=== PATIENT | female | born 1945 | race Caucasian/White ===

== ENCOUNTER 2016-12-02 09:12 | Inpatient (IN) ==
[2016-12-02] MEDS ORDERED: ASPIRIN PO STA (09:49)
[2016-12-02 09:56] LABS: MANUAL DIFF NEEDED? NO
--- NOTE | 2016-12-02 10:04 | PROVIDER DOCUMENTATION ---
HPI-Cardiac General - General Chief Complaint: B/P Problems Stated Complaint: AFIB Time Seen by Provider: 12/02/16 09:41 Source: patient Allergies/Adverse Reactions: Patient Allergies Allergy/AdvReac Type Severity Reaction Status Date / Time No Known Allergies Allergy Verified 12/02/16 09:52 Home Medications: Home Medication List Medication Instructions Recorded Confirmed Last Taken Type Alendronate Sodium [Fosamax] 70 mg PO DIRECTED 03/19/14 12/02/16 12/02/16 History Cholecalciferol (Vitamin D3) 4,000 unit PO DAILY 03/19/14 12/02/16 12/02/16 History [Vitamin D-3] Hydroxychloroquine [Plaquenil] 200 mg PO BID 03/19/14 12/02/16 12/02/16 History LISINOpril [Prinivil] 10 mg PO DAILY 03/19/14 12/02/16 03/04/16 08:00 History 1 tab Levothyroxine [Synthroid] 88 microgm PO DAILY 03/19/14 12/02/16 12/02/16 History Metoprolol [Lopressor] 50 mg PO HS 03/19/14 12/02/16 12/01/16 History Omeprazole 20 mg PO DAILY 03/19/14 12/02/16 12/02/16 History Simvastatin 20 mg PO DAILY 03/19/14 12/02/16 12/02/16 History Montelukast Sodium [Singulair] 10 mg PO DAILY 03/05/16 12/02/16 12/02/16 History Aspirin [Adult Low Dose Aspirin EC] 81 mg PO DAILY #30 tablet. 03/08/1612/02/16 Rx Diltiazem [Cardizem] 120 mg PO DAILY 12/02/16 12/02/16 12/02/16 History - History of Present Illness-Cardiac Nature of Presenting Problem: Pt is a 71 y/o F sent to the ER from an urgent care c EKG concerning for STEMI. Pt states that for the past 3 days she has had a fluttering/palpitating sensation in her chest. Pt had similar symptoms in Feb 2016 and was evaluated for SVT by cardiology. She was dx c paroxysmal a-fib that converted c cardizem. She was started on oral cardizem by her pcp. On arrival, pt denies any chest pain, fatigue, or shortness of breath. Her heart rate is 133 c a stable blood pressure. Review of Systems - Adult - REVIEW OF SYSTEMS - ADULT Constitutional: reports: see HPI, fatique. denies: chills Eyes: reports: no symptoms reported. denies: blurred vision, double vision Ears, Nose, Mouth & Throat: reports: no symptoms reported. denies: ear pain, nose pain Cardiovascular: reports: see HPI, irregular heart rate, palpitations. denies: chest pain Respiratory: reports: no symptoms reported. denies: cough, shortness of breath Gastrointestinal: reports: no symptoms reported. denies: abdominal pain, nausea Genitourinary: reports: no symptoms reported. denies: dysuria, hematuria Musculoskeletal: reports: no symptoms reported. denies: joint pain, joint swelling Integumentary: reports: no symptoms reported. denies: hives, itching, rash Neurological: reports: no symptoms reported. denies: numbness, paresthesia Psychiatric: reports: no symptoms reported. denies: anxiety, emotional problems Endocrine: reports: no symptoms reported. denies: cold intolerance, heat intolerance Hematologic/Lymphatic: reports: no symptoms reported. denies: blood clots, low blood count Allergic/Immunologic: reports: no symptoms reported. denies: allergic reactions , food allergy All Other Systems: Reviewed and Negative Past History - Adult - PAST MEDICAL HISTORY-ADULT Review of Records: reports: Old Records Reviewed, Nursing Assessment Review, Medications Reviewed, Social history reviewed & non-contributory. Major Childhood Illnesses: reports: denies history Cardiovascular: reports: A-Fib, arrhythmia, HTN, hyperlipidemia Respiratory: reports: denies history Gastrointestinal: reports: denies history Obstetrical/Gynecological: reports: denies history Genitourinary: reports: denies history Musculoskeletal: reports: chronic pain, intervertebral disc disease Neurological: reports: denies history Endocrine/Immune: reports: thyroid disorder Other Conditions: reports: denies history - PRIOR SURGERIES/PROCEDURES Surgical/Procedure History: reports: appendectomy, cholecystectomy, hysterectomy , , tonsillectomy, back/neck - PRIOR HOSPITALIZATIONS Prior Hospitalizations: reports: for other non-related - IMMUNIZATION STATUS Childhood Immunizations: See Nurse Assessment Flu Vaccine: See Nurse Assessment - FAMILY HISTORY Family History: reviewed, not pertinent - SOCIAL HISTORY Smoking: denies Substance Use: none/never Alcohol Use Frequency: never Living Situation: family Physical Exam-General - PHYSICAL EXAM-ADULT Initial Vital Signs Reviewed: Yes - CONSTITUTIONAL General Appearance: alert, no apparent distress - EYES Eyes: PERRL/EOMI, pink conjunctivae - HEAD, EARS, NOSE, MOUTH & THROAT HENMT: normocephalic/atraumatic, moist mucous membranes, normal ENT inspection - NECK Neck: normal inspection - RESPIRATORY Respiratory: chest non-tender, lungs clear, normal breath sounds - CARDIOVASCULAR Cardiovascular: tachycardia - GASTROINTESTINAL (ABDOMEN) Abdominal Exam: normal bowel sounds, non tender, soft - LYMPHATIC Lymphatic: no adenopathy - MUSCULOSKELETAL Back Exam: normal inspection, no CVA tenderness, no vertebral tenderness Extremity: normal range of motion, non-tender, normal inspection - SKIN Integumentary: normal color, normal turgor, warm/dry - NEUROLOGIC Neurologic: grossly normal, no motor/sensory deficits - PSYCHIATRIC Psych/Mental Status: normal mood/affect, normal thought content, normal thought process, oriented x 3 Progress - PLAN OF CARE/RESULTS Progress/Plan/Lab Results: Vital Signs - 8 hr 12/02/16 09:16 Temperature 98.3 F Pulse Rate 133 H Respiratory Rate 16 Blood Pressure 153/100 O2 Sat by Pulse Oximetry 98 Laboratory Results - last 24 hr 12/02/16 12/02/16 12/02/16 09:35 09:35 09:35 WBC RBC Hgb Hct MCV MCH MCHC RDW Std Deviation Plt Count MPV Immature Gran % (Auto) Neut % (Auto) Lymph % (Auto) [place] % (Auto) Eos % (Auto) Baso % (Auto) Immature Gran # (Auto) Neut # (Auto) Lymph # (Auto) [place] # (Auto) Eos # (Auto) Baso # (Auto) PT INR PTT (Actin FS) D-Dimer 0.38 Sodium 139 Potassium 4.0 Chloride 100 Carbon Dioxide 25 Anion Gap 14 BUN 16 Creatinine 0.8 Estimated GFR/1.73 m2 > 60 BUN/Creatinine Ratio 20 Glucose 102 Calculated Osmolality 279 Calcium 8.9 Magnesium Total Bilirubin 0.45 AST 25 ALT 15 Alkaline Phosphatase 65 Creatine Kinase 79 Troponin T < 0.010 [id number]-Xldxbhpvaxo Pept Total Protein 7.4 Albumin 4.3 Globulin 3.1 Albumin/Globulin Ratio 1.4 12/02/16 12/02/16 12/02/16 09:35 09:35 09:35 WBC 9.86 RBC 4.71 Hgb 13.9 Hct 42.4 MCV 90.0 MCH 29.5 MCHC 32.8 L RDW Std Deviation 12.6 Plt Count 297 MPV 10.3 Immature Gran % (Auto) 0.3 Neut % (Auto) 65.7 Lymph % (Auto) 19.1 L [place] % (Auto) 11.7 H Eos % (Auto) 2.4 Baso % (Auto) 0.8 Immature Gran # (Auto) 0.03 Neut # (Auto) 6.48 Lymph # (Auto) 1.88 [place] # (Auto) 1.15 H Eos # (Auto) 0.24 Baso # (Auto) 0.08 PT 10.6 INR 1.01 PTT (Actin FS) 24.9 D-Dimer Sodium Potassium Chloride Carbon Dioxide Anion Gap BUN Creatinine Estimated GFR/1.73 m2 BUN/Creatinine Ratio Glucose Calculated Osmolality Calcium Magnesium Total Bilirubin AST ALT Alkaline Phosphatase Creatine Kinase Troponin T Vud-[id number]-Axmwelxrtrp Pept 2300 H Total Protein Albumin Globulin Albumin/Globulin Ratio 12/02/16 09:35 WBC RBC Hgb Hct MCV MCH MCHC RDW Std Deviation Plt Count MPV Immature Gran % (Auto) Neut % (Auto) Lymph % (Auto) [place] % (Auto) Eos % (Auto) Baso % (Auto) Immature Gran # (Auto) Neut # (Auto) Lymph # (Auto) [place] # (Auto) Eos # (Auto) Baso # (Auto) PT INR PTT (Actin FS) D-Dimer Sodium Potassium Chloride Carbon Dioxide Anion Gap BUN Creatinine Estimated GFR/1.73 m2 BUN/Creatinine Ratio Glucose Calculated Osmolality Calcium Magnesium 1.7 Total Bilirubin AST ALT Alkaline Phosphatase Creatine Kinase Troponin T [id number]-Lzsymaxpzvz Pept Total Protein Albumin Globulin Albumin/Globulin Ratio Orders Category Date Time Status Cardiac Monitoring DIRECTED Care 12/02/16 09:49 Active Oxygen Therapy- ED Nursing DIRECTED Care 12/02/16 09:49 Active Saline Loc NOW Care 12/02/16 09:49 Active CHEST-2 VIEWS [RAD] Stat Exams 12/02/16 09:49 Completed CBC WITH ELECTRONIC DIFF [HEME] Stat Lab 12/02/16 09:35 Completed CK PROFILE [SP CHEM] Stat Lab 12/02/16 09:35 Completed COMPREHENSIVE METABOLIC PANEL [CHEM] Stat Lab 12/02/16 09:35 Completed D-DIMER [CHEM] Stat Lab 12/02/16 09:35 Completed MAGNESIUM [CHEM] Stat Lab 12/02/16 09:35 Completed PRO B-NATRIURETIC PEPTIDE Stat Lab 12/02/16 09:35 Completed PROTIME WITH INR [COAG] Stat Lab 12/02/16 09:35 Completed PTT [COAG] Stat Lab 12/02/16 09:35 Completed TROPONIN T Stat Lab 12/02/16 09:35 Completed Aspirin Med 12/02/16 09:49 Discontinued 325 mg PO STAT STA Diltiazem [Cardizem] Med 12/02/16 10:38 Discontinued 10 mg IV NOW ONE EKG [EKG] Stat Ther 12/02/16 09:49 Draft Result Diagrams: 12/02/16 09:35 12/02/16 09:35 - REASSESSMENT Reassessment #1 Time Reassessed: 09:58 (Discussed c Dr. Suazo (ER MD) who reviewed plan of care and agreed. Dr. Suazo went to bedside. ) - CONSULTS/PCP/HOSPITALIST Notification #1 *Consult/PCP/Hospitalist*: Dr. Matos (PCP) Time Discussed: 11:15 Reason/Comments: admit to cic on cardizem drip. will see on the floor. Departure - Departure Date of Disposition Decision: 12/02/16 Time of Disposition Decision: 11:15 DIAGNOSIS: Atrial flutter Qualifiers: Atrial flutter type: unspecified Qualified Code(s): I48.92 - Unspecified atrial flutter Disposition: ADMITTED INPATIENT 09 Certified Medical Emergency: Emergent Condition: Stable Referrals and Follow-Ups: Jonelle Matos MD [Primary Care Provider] - - Critical Care Note This patient required my direct & personal management of CC.: No Attestation - Physician/ HARINDER Attestation Patient care was provided by Advanced Practice Provider:: Yes Advanced Practice Provider:: Sudarshan Segal Advanced Practice Provider documentation review:: The Mid-level provider documentation, treatment plan and medical decision making was reviewed by the physician who agrees with all treatment and medical decision making by the MLP.
[2016-12-02 10:11] LABS: BASO% 0.8 % (0.0-0.8); EOS# 0.24 X1000 (0.0-0.7); EOS% 2.4 % (0.0-10.0); HEMATOCRIT 42.4 % (37.0-47.0); HEMOGLOBIN 13.9 g/dL (12.0-16.0); IMM GRAN# 0.03 X1000 (0.0-0.04); IMM GRAN% 0.3 % (0.0-0.5); LYMPH# 1.88 X1000 (1.2-3.4); LYMPH% 19.1 % (20.5-51.1); MCH 29.5 PG (27-31); MCHC 32.8 g/dL (33-37); MONO# 1.15 X1000 (0.11-0.59); MONO% 11.7 % (1.7-9.3); MPV 10.3 FL (7.4-10.4); NEUT% 65.7 % (42.2-75.2); PLT 297 X1000 (130-400); RBC 4.71 XMIL (4.2-5.4)
--- NOTE | 2016-12-02 10:19 | Diag Imaging Result Doc PS360 ---
EXAM: CHEST-2 VIEWS HISTORY: CP TECHNIQUE: PA and lateral chest COMMENT: There is no evidence of acute cardiac or pulmonary disease. Compared to 03/04/2016 there is been no significant change in the appearance of the chest. IMPRESSION: No acute disease. Electronically signed by Elijah Rogers 12/02/2016 10:17 AM
[2016-12-02 10:28] LABS: INR 1.01; PROTIME 10.6 Seconds (9.2-11.7); PTT 24.9 Seconds (22.0-36.0)
--- NOTE | 2016-12-02 10:28 | EKG Report ---
Test Performed on : 12/02/2016 09:19:46 AM Test Reason : Chest Pain Blood Pressure : / mmHG Vent. Rate : 133 BPM Atrial Rate : 266 BPM P-R Int : 000 ms QRS Dur : 080 ms QT Int : 398 ms P-R-T Axes : 000 060 095 degrees QTc Int : 592 ms Atrial flutter. with 2:[address] elevation, consider inferior injury or acute infarct ACUTE MD / STEMI Consider right ventricular involvement in acute inferior infarct Abnormal ECG When compared with ECG of 07-MAR-2016 07:09, Significant changes have occurred Unconfirmed Result
[2016-12-02 10:32] LABS: AGAP 14; ALBUMIN 4.3 g/dL (3.5-5.0); ALKALINE PHOSPHATASE 65 U/L (32-104); BUN 16 mg/dL (8-22); CALCIUM 8.9 mg/dL (8.8-10.2); CHLORIDE 100 mmol/L (98-107); CK PROFILE 79 U/L (24-173); COSMO 279; GOT 25 U/L (10-30); GPT 15 U/L (10-36); SODIUM 139 mmol/L (136-145); TCO2 25 mmol/L (25-35); TOTAL BILIRUBIN 0.45 mg/dL (0.20-1.00); TOTAL PROTEIN 7.4 g/dL (6.3-8.3)
[2016-12-02] MEDS ORDERED: CARDIZEM IV ONE (10:38)
[2016-12-02] MEDS ORDERED: NS 1,000 ML IV ONE (11:18)
[2016-12-02] MEDS: CARDIZEM 100 MG/NS 100 MG/100 ML IVPB IV SCH ×3 (11:50→22:00)
[2016-12-02] MEDS: RYTHMOL PO SCH ×2 (15:49→17:41)
[2016-12-02] MEDS: LOVENOX SUBQ SCH (15:49)
--- NOTE | 2016-12-02 18:24 | CONSULTATION ---
DATE OF CONSULTATION: 12/02/2016 IMPRESSION: 1. Atrial flutter with rapid ventricular rate now better controlled with intravenous Cardizem. Symptoms of palpitations started 2 days ago. 2. Previous atrial fibrillation February 2016. Patient spontaneously converted back to sinus rhythm after initiation of Cardizem for rate control. 3. Normal coronary angiography February 2016. 4. Hypertension. 5. Hypercholesterolemia. 6. Hypothyroidism. RECOMMENDATIONS: 1. Continue intravenous Cardizem for rate control. 2. Initiate anticoagulation with Lovenox. 3. Patient has significant CHADS2-VASc 2 score and would benefit from long-term anticoagulation for thromboembolic risk protection. 4. Given recurrence of atrial arrhythmia with previous atrial fibrillation and now atrial flutter, reasonable to suppress with antiarrhythmic therapy. Is advantageous that she had normal coronary angiography February 2016. Will initiate a type 1C antiarrhythmic with propafenone. Alternatively one could use combination of flecainide plus beta-atif. HISTORY: This 71-year-old white female with past history of previous atrial fibrillation, hypertension, hypercholesterolemia and hypothyroidism was admitted through emergency room with palpitations and ECG showing atrial flutter with rapid ventricular rate. She has been started on intravenous Cardizem. Cardiology is consulted. She started having pounding in her chest 2 days ago. She describes an associated sensation like gastroesophageal reflux with her tachy palpitations. Symptoms did not get better and she finally came in this morning. She was hospitalized with atrial fibrillation, rapid ventricular rate in February 2016. Evaluation at that time included coronary angiography which was normal. She recalls being started on intravenous Cardizem and she converted back to sinus rhythm without having to have electrical cardioversion. She has been on antiplatelet therapy. There is no history of syncope. PAST MEDICAL HISTORY: 1. Previous atrial fibrillation February 2016. 2. Previous normal coronary angiography February 2016. 3. Hypertension. 4. Hypercholesterolemia. 5. Hypothyroidism. 6. Gastroesophageal reflux disease. PAST SURGICAL HISTORY: Includes complete hysterectomy, cholecystectomy, and appendectomy. ALLERGIES: She has no known drug allergies. MEDICATIONS: Prior to admission as listed. SOCIAL HISTORY: She has been a nonsmoker since 1982. She drinks an infrequent glass of wine. 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 FAMILY HISTORY: Negative for premature coronary disease. REVIEW OF SYSTEMS: Pulmonary: Negative. Gastrointestinal: Negative beyond history present illness. Constitutional: Negative beyond history present illness. Remainder review of systems negative beyond history present illness with 14 total systems reviewed. PHYSICAL EXAMINATION: General: This is a pleasant, older white female in no distress. Vital Signs: As recorded are stable. HEENT Exam: Extraocular intact. Mucous membranes are moist. Neck: Supple without jugular venous distention. No carotid bruits. Chest: Clear to auscultation. Cardiac Exam: Reveals a regular tachycardia without appreciable murmur or gallop. Abdomen: Soft, nontender. Bowel sounds are normal. Extremities: Without edema. Neurologic Exam: Reveals her to be alert, fully oriented. Speech is fluent. Moves all 4 extremities equally well. Skin: Warm and dry. Psychiatric: Reveals her mood to be appropriate. DATA: ECG demonstrates atrial flutter with 2:1 AV conduction. cc: MD Garry Mckay MD
--- NOTE | 2016-12-02 20:02 | HISTORY AND PHYSICAL ---
CHIEF COMPLAINT: Palpitations, atypical chest pain. HISTORY OF PRESENT ILLNESS: She is a 71-year-old white female with known history of intermittent atrial fibrillation under medical treatment recently evaluated 6 months ago with a normal coronary angiography, no structural heart disease. Loop monitor did not show any evidence of intermittent atrial fibrillation. She was seen in our clinic with atrial flutter with heart rate 130-140s. Admitted to the hospital after evaluating in the emergency room. She was started on Cardizem drip and further evaluation. Cardiology consult was obtained. PAST MEDICAL HISTORY: Allergic rhinitis. Bilateral cataracts. Acid reflux disease. Deafness. Hyperlipidemia. Hypertension. Hypothyroidism. Rheumatoid arthritis. 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 Osteoporosis. Atrial fibrillation, paroxysmal. PAST SURGICAL HISTORY: Tonsillectomy, cholecystectomy, total hysterectomy, C- section. Colonoscopy 3 years ago, normal. MEDICATIONS: Vitamin D3 4000 units daily. Simvastatin 20 daily. Prilosec 20 daily. Plaquenil 200 p.o. b.i.d. Synthroid 88 mcg daily. Lisinopril 10 daily. Metoprolol 50 daily. Fosamax 70 mg once a week. Singulair 10 daily. Aspirin 80 mg daily. Cardizem 120 daily. ALLERGIES: Not known. SOCIAL HISTORY: since 2001, lives in [place], disabled, no smoking. No alcohol. FAMILY HISTORY: Father of COPD, end-stage kidney failure at 71. Mom of COPD and lung cancer. Brother of cardiac arrest with end-stage kidney disease. HEALTH MAINTENANCE: Pneumococcal vaccine 2013. DEXA scan 2012. Colonoscopy [address] Rivera. Last cardiac catheterization February [address] Hairston. REVIEW OF SYSTEMS: HEENT: No headache. No vision problem. No earache. No sore throat. Neck: No goiter. No lymphadenopathy. No bruits. Cardiopulmonary: Palpitations. Atypical chest pain. No shortness of breath, PND, orthopnea. GI: No nausea, vomiting, abdominal pain. : No history of hesitancy, frequency. No swelling of legs. No joint pain. Neurologic: No focal symptoms or weakness. PHYSICAL EXAMINATION: VITAL SIGNS: Afebrile, tachycardic, irregular. Hemodynamics were stable. 5 feet 1, 158 pounds. HEENT: Atraumatic, normocephalic. Pupils equal, reactive to light. no pallor no cyanosis. No jaundice. NECK: Supple. No lymphadenopathy. No goiter. CHEST: Bilateral air entry. No rales, no wheezing. HEART: Sounds are irregular. No murmur. ABDOMEN: Belly is soft, nontender. Good bowel sounds. No masses palpable. No peripheral edema, cyanosis, clubbing. NEUROLOGIC: No obvious neurological deficits. INVESTIGATIONS: CBC: White cell count 9.8, hematocrit 42, platelets 297,000. PT 10, INR 1. PTT 24.9. D-dimer is normal. SMA7 is normal. LFTs: Magnesium, cardiac enzymes were normal. ProBNP slightly elevated. Chest x-ray. No acute disease. EKG: Atrial flutter with nonspecific changes. ASSESSMENT AND PLAN: 1. A 71-year-old white female admitted to the hospital with atrial flutter, persistent, and previous workup, loop monitor, cardiac catheterization, and echocardiography were pretty much normal. No significant structural heart disease noted. Plan is IV Cardizem drip, Lovenox, antiarrhythmic drug. Started on Rythmol. 2. Reconcile home medications. 3. Hyperlipidemia, on Zocor. 4. Acid reflux disease, on Prilosec. 5. Allergies, on Singulair. 6. Hypothyroidism, on Synthroid. 7. Rheumatoid arthritis, on hydroxychloroquine under the care of Dr. Mcgovern. 8. Cardiology consult with Dr. Isak Tobias. If not able to cardiovert chemically, consider direct cardioversion and will follow up on the clinical course. cc: Garry Matos MD [facility]
[2016-12-02] MEDS: PLAQUENIL PO SCH ×2 (21:33)
[2016-12-02] MEDS: ZOCOR PO SCH (22:06)
[2016-12-02] MEDS: SINGULAIR PO SCH (22:06)
[2016-12-03] MEDS: LOVENOX SUBQ SCH ×2 (03:28→15:10)
[2016-12-03 05:04] LABS: BASO% 0.7 % (0.0-0.8); EOS# 0.31 X1000 (0.0-0.7); EOS% 3.3 % (0.0-10.0); HEMATOCRIT 38.1 % (37.0-47.0); HEMOGLOBIN 12.5 g/dL (12.0-16.0); IMM GRAN# 0.03 X1000 (0.0-0.04); IMM GRAN% 0.3 % (0.0-0.5); LYMPH# 2.18 X1000 (1.2-3.4); MANUAL DIFF NEEDED? NO; MCHC 32.8 g/dL (33-37); MCV 91.4 FL (81-99); MONO# 1.21 X1000 (0.11-0.59); MONO% 12.8 % (1.7-9.3); MPV 9.9 FL (7.4-10.4); NEUT% 59.9 % (42.2-75.2); PLT 234 X1000 (130-400); RBC 4.17 XMIL (4.2-5.4)
[2016-12-03 05:25] LABS: MAGNESIUM 1.6 mg/dL (1.5-2.7); POTASSIUM 3.7 mmol/L (3.5-5.1)
[2016-12-03] MEDS: CARDIZEM 100 MG/NS 100 MG/100 ML IVPB IV SCH ×3 (05:51→17:20)
[2016-12-03] MEDS: PRILOSEC PO SCH ×2 (05:51→06:28)
[2016-12-03] MEDS: SYNTHROID PO SCH ×2 (05:52→06:29)
--- NOTE | 2016-12-03 08:18 | PROGRESS NOTE ---
DATE: 12/03/2016 SUBJECTIVE: A 71-year-old white female patient admitted with atrial flutter with rapid ventricular response. The patient had history of atrial fibrillation. The patient was complaining of palpitation. EKG did reveal atrial flutter. Admission history, physical, and cardiology consult reviewed. The patient converted to sinus rhythm last night, but again she went into flutter/fibrillation. Patient does have palpitation. She denied any chest pain. No nausea or vomiting. She denied any unusual cough, expectoration, dull headache. No heat or cold intolerance. No polyuria or polydipsia. PAST MEDICAL HISTORY: Significant for atrial fibrillation. She had normal coronaries. Allergic rhinitis, gastritis and reflux disease, hyperlipidemia, hearing impairment, hypertension, hypothyroidism, rheumatoid arthritis, osteoporosis. OBJECTIVE: Vital Signs: Her vital signs noted. Neck: Supple. No JVD. Lungs: Bilateral good air entry present. CVS: S1 and S2. Tachycardia. Irregularly irregular. Abdomen: Soft, nontender. Bowel sounds present. Extremities: No cyanosis, clubbing. No acute DVT. COOK RESTAURANT: Alert, awake, able to move all 4 limbs. LAB DATA: Revealed hemoglobin 12.5, hematocrit 38.1, platelet count 234, WBC count 9.47. Electrolytes fairly benign. Magnesium was 1.6. Cardiac isoenzymes negative. I am going to check TSH and free T4. Continue rest of the treatment. Close observation. OVERALL IMPRESSION: 1. Atrial flutter with rapid ventricular rate. 2. History of paroxysmal atrial fibrillation. 3. Hypertension. 4. Hypothyroidism. 5. Hyperlipidemia. 6. History of rheumatoid arthritis. PLAN: Executive Team Leader following patient with us. Lab and medication noted. We will continue current treatment and close observation. cc: MD Garry Mcmahon MD
[2016-12-03] MEDS: RYTHMOL PO SCH ×3 (10:29→17:20)
[2016-12-03] MEDS: ASPIRIN EC PO SCH (10:29)
[2016-12-03] MEDS: PLAQUENIL PO SCH ×2 (10:29→20:44)
[2016-12-03] MEDS: SENOKOT PO SCH (10:29)
[2016-12-03] MEDS: VITAMIN D PO SCH (10:29)
[2016-12-03 10:39] LABS: FREE T4 1.43 ng/dL (0.93-1.70)
[2016-12-03] MEDS ORDERED: MAGNESIUM SULFATE 4 GM/S.W.I. 4 GM/100 ML IVPB IV ONE (11:06)
[2016-12-03] MEDS: LANOXIN IV SCH ×3 (11:47→23:35)
--- NOTE | 2016-12-03 12:40 | PROGRESS NOTE ---
DATE: 12/03/2016 CHIEF COMPLAINT: Irregular heartbeat, palpitations. SUBJECTIVE: Ms. Paige is still feeling palpitations. She is presently on IV Cardizem and oral propafenone has been initiated. Heart rate is still fluctuating widely between 90 beats per minute to 120. She is not in any distress of pain. OBJECTIVE: Vital signs: Blood pressure right now is 119/63. Temperature 98.1. Pulse 120. Respirations 18. General: She is awake, alert and oriented. Follows commands. HEENT: Unremarkable. Chest: Clear to auscultation and percussion. Cardiac: Heart sounds are tachycardic, irregularly irregular. No gallop or murmur is noted. Abdomen: Nontender, soft. No masses. No hepatomegaly. Extremities: Show good pulses. No edema. Neurologic: Moves four extremities. Follows commands. LABORATORY DATA: Today sodium 141, potassium 3.7, BUN 17, creatinine 1.0. Troponin has been checked several times, twice at least, and they are negative. A proBNP level was done on the day of admission. It was 2300 pg per mL. Hemoglobin 12.5, hematocrit 38.1, white count 9470. IMPRESSION: 1. Patient with paroxysmal atrial flutter. 2. Patient with a history of hypertension, hyperlipidemia, gastric reflux. 3. Negative coronary arteriogram in the past which was done by Dr. Hairston 03/07/2016. RECOMMENDATIONS: At this point in time, we will continue IV Cardizem, propafenone by mouth, and I will give her 3 doses of digoxin plus IV magnesium. Hopefully we will get her to convert to sinus rhythm. She might be a good candidate for ablation of atrial flutter. Further advice will be forthcoming. Thank you for the opportunity to participate in her evaluation. cc: MD Garry Valente MD
[2016-12-03] MEDS: ZOCOR PO SCH (20:44)
[2016-12-03] MEDS: SINGULAIR PO SCH (20:44)
[2016-12-04] MEDS: LOVENOX SUBQ SCH ×2 (02:15→13:18)
[2016-12-04] MEDS: CARDIZEM 100 MG/NS 100 MG/100 ML IVPB IV SCH ×3 (02:15→20:54)
[2016-12-04 05:45] LABS: MANUAL DIFF NEEDED? NO
[2016-12-04] MEDS: SYNTHROID PO SCH ×2 (05:58→06:27)
[2016-12-04] MEDS: PRILOSEC PO SCH ×2 (05:58→06:27)
[2016-12-04 06:13] LABS: AGAP 10; ALBUMIN 3.6 g/dL (3.5-5.0); ALKALINE PHOSPHATASE 59 U/L (32-104); BUN 13 mg/dL (8-22); CALCIUM 8.1 mg/dL (8.8-10.2); CHLORIDE 106 mmol/L (98-107); COSMO 281; GOT 18 U/L (10-30); GPT 11 U/L (10-36); MAGNESIUM 2.2 mg/dL (1.5-2.7); POTASSIUM 4.2 mmol/L (3.5-5.1); SODIUM 141 mmol/L (136-145); TCO2 25 mmol/L (25-35); TOTAL BILIRUBIN 0.27 mg/dL (0.20-1.00)
[2016-12-04 06:24] LABS: BASO% 0.6 % (0.0-0.8); EOS# 0.28 X1000 (0.0-0.7); EOS% 3.2 % (0.0-10.0); HEMATOCRIT 36.5 % (37.0-47.0); HEMOGLOBIN 11.8 g/dL (12.0-16.0); IMM GRAN# 0.02 X1000 (0.0-0.04); IMM GRAN% 0.2 % (0.0-0.5); LYMPH# 1.87 X1000 (1.2-3.4); LYMPH% 21.3 % (20.5-51.1); MCH 29.9 PG (27-31); MCHC 32.3 g/dL (33-37); MCV 92.6 FL (81-99); MONO% 11.4 % (1.7-9.3); MPV 9.9 FL (7.4-10.4); NEUT% 63.3 % (42.2-75.2); PLT 232 X1000 (130-400); RBC 3.94 XMIL (4.2-5.4)
--- NOTE | 2016-12-04 07:56 | ECHO REPORT ---
ORDER DATE: 12/02/2016 INTERPRETING PHYSICIAN: Dr. Crain REQUESTING PHYSICIAN: CLINICAL INDICATIONS: Echocardiogram requested for evaluation of atrial flutter. M-MODE MEASUREMENTS: Right ventricle: 2.7 cm. Left ventricle end diastole: 4.3 cm. Left ventricle end systole: 3.1 cm. Posterior wall: 1.2 cm. Interventricular septum: 1.2 cm. Left atrium: 3.4 cm. Aortic root: 3.2 cm. SUMMARY OF 2-DIMENSIONAL IMAGING: The left ventricular function is normal. Ejection fraction 62%. No wall motion abnormality is noted. The left ventricle is not dilated. There is a mild degree of concentric LVH. The left atrium is moderately to significantly enlarged. The right ventricle appears to be at the upper limits of normal. The right atrium is probably borderline enlarged. The mitral annulus shows thickening. Color flow mapping of the mitral valve indicates a mild degree of regurgitation. Pulse wave Doppler of mitral inflow shows a fusion pattern with an early filling wave and the "flutter" waves merging. Diastolic function cannot be evaluated in this case because of this abnormal pattern. The tricuspid valve looks normal with a mild degree of regurgitation. Pulmonary pressure estimated at 27 mmHg. The inferior vena cava is not dilated. The pulmonic valve looks normal with a mild degree of regurgitation. The aortic valve shows normal opening of the cusps. There is no aortic stenosis. There is a little thickening of the posterior cusp. There is some calcification of the root. Color flow mapping indicates a mild degree of aortic regurgitation. There is no pericardial effusion, masses or thrombus. IMPRESSION: In summary, this study shows: 1. Normal left ventricular systolic function. 2. Mild degree of concentric LVH. 3. Moderately enlarged left atrium. 4. Sclerosis of aortic valve and mitral annulus. 5. Mild degree of mitral and aortic regurgitation. 6. Pulmonary pressure estimated at 27 mmHg. 7. Diastolic function cannot be evaluated. Clinical correlation recommended. cc: MD Garry Valente MD
[2016-12-04] MEDS: VITAMIN D PO SCH (08:26)
[2016-12-04] MEDS: PLAQUENIL PO SCH ×2 (08:26→20:55)
[2016-12-04] MEDS: SENOKOT PO SCH (08:26)
[2016-12-04] MEDS: ASPIRIN EC PO SCH (08:26)
[2016-12-04] MEDS: RYTHMOL PO SCH ×3 (08:26→17:49)
--- NOTE | 2016-12-04 10:02 | PROGRESS NOTE ---
DATE: 12/04/2016 SUBJECTIVE: Ms. Paige is doing better. She denied any chest pain. Palpitation is improving. No shortness of breath. No fever or chills. Denied any nausea or vomiting. Cardiology recommendation noted. OBJECTIVE: Vital Signs: Her vital signs reviewed. Neck: Supple. No JVD, thyromegaly, or lymphadenopathy. Chest: Bilateral good air entry present. CVS: S1 and S2 heard. At times, irregular. Abdomen: Soft, globular. Bowel sounds present. 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 Able to move all 4 limbs. PROBLEM LIST: 1. Atrial flutter. 2. Hypothyroidism. I rechecked her TSH and free T4, and those were normal. Her electrolytes were fairly benign this morning. 3. History of rheumatoid arthritis. 4. Rhinitis. PLAN: Overall, patient is doing fair. We will continue current treatment and close observation. cc: MD Garry Mcmahon MD
[2016-12-04] MEDS: SINGULAIR PO SCH (20:55)
[2016-12-04] MEDS: ZOCOR PO SCH (20:55)
[2016-12-05] MEDS: LOVENOX SUBQ SCH (01:02)
[2016-12-05] MEDS: CARDIZEM 100 MG/NS 100 MG/100 ML IVPB IV SCH (06:19)
[2016-12-05] MEDS: PRILOSEC PO SCH (06:19)
[2016-12-05] MEDS: SYNTHROID PO SCH (06:19)
--- NOTE | 2016-12-05 06:56 | EKG Report ---
Test Performed on : 12/05/2016 06:08:08 AM Test Reason : atrial flutter Blood Pressure : / mmHG Vent. Rate : 099 BPM Atrial Rate : 099 BPM P-R Int : 198 ms QRS Dur : 114 ms QT Int : 380 ms P-R-T Axes : 083 056 071 degrees QTc Int : 487 ms Normal sinus rhythm. Nonspecific ST and T wave abnormality Abnormal ECG When compared with ECG of 04-DEC-2016 06:13, (Unconfirmed) Sinus rhythm. has replaced Atrial flutter. Nonspecific T wave abnormality has replaced inverted T waves in Lateral leads Confirmed by Enrico Billingsley MD ([id number]) on 12/06/2016 12:26:53 PM
[2016-12-05] MEDS: RYTHMOL PO SCH ×3 (08:58→16:28)
[2016-12-05] MEDS: SENOKOT PO SCH (08:58)
[2016-12-05] MEDS: VITAMIN D PO SCH (08:58)
[2016-12-05] MEDS: PLAQUENIL PO SCH ×2 (08:58→21:41)
[2016-12-05] MEDS: ASPIRIN EC PO SCH (08:58)
--- NOTE | 2016-12-05 09:18 | PROGRESS NOTE ---
DATE: 12/04/2016 CHIEF COMPLAINT: Irregular heart beat, palpitations. SUBJECTIVE: Ms. Paige has no complaints at this time. She is breathing fine. She is not having palpitations or chest pain. OBJECTIVE: Her blood pressure is 119/62, temperature 98.1, pulse 96, respirations 18. She is awake, alert and oriented, no distress. HEENT is unremarkable. Chest is clear to auscultation and percussion. Heart sounds are slightly irregular. Abdomen is nontender, soft. No masses, no hepatomegaly. Extremities showed good pulses, no edema. Neurologic: Follows commands, moves all 4 extremities. DIAGNOSTIC DATA: White count is 8760, hemoglobin 11.8, hematocrit 36.5. Sodium is 141, potassium 4.2, BUN is 13, creatinine 0.7. Telemetry shows atrial flutter with controlled response. IMPRESSION: 1. The patient presented with persistent atrial flutter. She is better controlled on propafenone, Cardizem and digoxin. 2. History of hypertension. 3. History of hyperlipidemia. 4. Negative coronary artery disease per heart catheterization performed last year. RECOMMENDATIONS: We will give her a maintenance dose of digoxin until decision is made whether or not she needs to be cardioverted. Further advice will be forthcoming. cc: MD Garry Valente MD
--- NOTE | 2016-12-05 10:39 | EKG Report ---
Test Performed on : 12/02/2016 11:42:13 PM Test Reason : CIC. Not ordered in [place] Blood Pressure : / mmHG Vent. Rate : 104 BPM Atrial Rate : 104 BPM P-R Int : 188 ms QRS Dur : 092 ms QT Int : 332 ms P-R-T Axes : 087 039 130 degrees QTc Int : [address] \T\ T wave abnormality, consider inferior ischemia ST \T\ T wave abnormality, consider anterolateral ischemia Abnormal ECG When compared with ECG of 02-DEC-2016 09:19, (Unconfirmed) Sinus rhythm. has replaced Atrial flutter. ST no longer elevated in Inferior leads T wave inversion now evident in Inferior leads Confirmed by Enrico Billingsley MD ([id number]) on 12/06/2016 12:24:34 PM
--- NOTE | 2016-12-05 10:40 | EKG Report ---
Test Performed on : 12/03/2016 06:06:05 AM Test Reason : cp Blood Pressure : / mmHG Vent. Rate : 120 BPM Atrial Rate : 240 BPM P-R Int : 000 ms QRS Dur : 146 ms QT Int : 452 ms P-R-T Axes : 000 043 085 degrees QTc Int : 638 ms Atrial flutter. with 2:1 AV conduction. Nonspecific intraventricular block Abnormal ECG When compared with ECG of 02-DEC-2016 23:42, (Unconfirmed) Atrial flutter. has replaced Sinus rhythm. Non-specific change in ST segment in Inferior leads Non-specific change in ST segment in Anterior leads T wave inversion no longer evident in Inferior leads T wave inversion no longer evident in Anterolateral leads Confirmed by Jose Cruz LEMUS, MKhadar Toussaint ([id number]) on 12/06/2016 12:25:08 PM
--- NOTE | 2016-12-05 10:45 | EKG Report ---
Test Performed on : 12/04/2016 06:13:05 AM Test Reason : atrial flutter Blood Pressure : / mmHG Vent. Rate : 094 BPM Atrial Rate : 202 BPM P-R Int : 000 ms QRS Dur : 094 ms QT Int : 350 ms P-R-T Axes : 068 048 000 degrees QTc Int : 437 ms Atrial flutter. with variable AV block. ST \T\ T wave abnormality, consider inferior ischemia ST \T\ T wave abnormality, consider anterolateral ischemia Abnormal ECG When compared with ECG of 03-DEC-2016 06:06, (Unconfirmed) QRS duration has decreased T wave inversion now evident in Inferior leads T wave inversion now evident in Anterolateral leads Confirmed by Enrico Billingsley MD ([id number]) on 12/06/2016 12:25:59 PM
[2016-12-05] MEDS: CARDIZEM PO SCH ×2 (14:50→21:41)
[2016-12-05] MEDS: ZOCOR PO SCH (21:41)
[2016-12-05] MEDS: SINGULAIR PO SCH (21:42)
[2016-12-05] MEDS: ELIQUIS PO SCH (21:42)
--- NOTE | 2016-12-06 03:29 | PROGRESS NOTE ---
DATE: 12/05/2016 SUBJECTIVE: Events noted over the weekend. Patient is in and out of atrial flutter and sinus. Still on Cardizem drip. Ruled out for GA by serial cardiac enzymes. REVIEW OF SYSTEMS: None reported. PHYSICAL EXAMINATION: Vital Signs: Afebrile, heart rate is 97, blood pressure is stable, 99% on room air. HEENT: Within normal limits. Neck: Supple. Chest: Clear. Heart: Sounds are regular. Belly is soft, nontender. Good bowel sounds. No peripheral edema. Neurologic: No neurological deficits. INVESTIGATIONS: CBC: White cell count 8.7 hematocrit 36, platelets 232,000. SMA-7: Sodium 140, potassium 4.2, chloride 106, BUN 13, creatinine 0.7, magnesium 2.2. LFTs and thyroid function tests were normal. ASSESSMENT AND PLAN: 1. Proximal atrial flutter, in-and-out, currently in sinus. Discontinue Cardizem drip. Change to diltiazem 60 mg q.6 h. Discontinue metoprolol. Patient did receive the Lovenox shot at 1 a.m. Will start with Eliquis 5 mg p.o. b.i.d. 2. Hypothyroidism, stable. 3. Continue on antiarrhythmic drug Rythmol, since the patient did not have any evidence of structural heart disease. 4. Hyperlipidemia, on Zocor. Discussed with patient's daughter about the plans. If this were to fail, consider EP studies. The level of documentation is 25 minutes. cc: Garry Matos MD
[2016-12-06] MEDS: PRILOSEC PO SCH (06:14)
[2016-12-06] MEDS: SYNTHROID PO SCH (06:14)
[2016-12-06 07:28] VITALS: BP 140/73
[2016-12-06] MEDS ORDERED: CARDIZEM CD PO SCH (09:00)
[2016-12-06] MEDS: RYTHMOL PO SCH (09:07)
[2016-12-06] MEDS: ELIQUIS PO SCH (09:07)
[2016-12-06] MEDS: VITAMIN D PO SCH (09:07)
[2016-12-06] MEDS: SENOKOT PO SCH (09:07)
[2016-12-06] MEDS: PLAQUENIL PO SCH (09:07)
--- NOTE | 2016-12-07 16:46 | DISCHARGE SUMMARY ---
ADMISSION DATE: 12/02/2016 DISCHARGE DATE: 12/06/2016 DISCHARGING DIAGNOSIS: Paroxysmal atrial flutter and atrial fibrillation. SECONDARY DIAGNOSES: 1. Allergic rhinitis. 2. Acid reflux disease. 3. Deafness. 4. Hyperlipidemia. 5. Hypertension. 6. Hypothyroidism. 7. Osteoarthritis. 8. Chronic suppurative otitis media on the left side. 9. Osteoporosis. CONSULTS: Isak Tobias MD. BRIEF HISTORY: Please see the H and P that was done on 12/02/2016. In brief, she is a 71-year- old white female, who has been suffering intermittent atrial fibrillation. She was ruled out for structural heart disease in February [address] Hairston. Patient had a left heart catheterization which was negative. Normal echocardiography without any valvular heart disease and normal LV systolic function. Ejection fraction 60%. The patient also had normal thyroid function tests on replacement therapy. She has a persistent flutter requiring IV Cardizem drip. Patient was ruled out for ME with serial cardiac enzymes. Patient was started on Lovenox, Rythmol, IV Cardizem drip. She converted to sinus. Cardizem drip was stopped. Patient remains in sinus. I did discuss with the patient's daughter about the care plan. We will continue medical therapy. We will follow up outpatient 30 day loop monitor. If she continues to have intermittent atrial fibrillation we will refer to electrophysiology study. DIAGNOSTIC DATA: Labs during this admission are as follows. CBC: White cell count 8.7, hematocrit 36, platelets 232,000. SMA 7: Sodium 140, potassium 4.2, chloride 106, BUN is 13, creatinine 0.7, glucose 94, calcium 8.1, magnesium 2.2. LFTs were normal. Normal thyroid function tests. Cardiac enzymes were normal. ProBNP 2300. Chest x-ray: No acute disease. ASSESSMENT AND PLAN: Patient was discharged home in a stable condition. At the time of discharge, patient remained in sinus with slight tachycardia. DISCHARGE INSTRUCTIONS: As follows: Vitamin D3 4000 units daily, simvastatin 20 daily, Prilosec 20 daily Plaquenil 200 p.o. b.i.d., Synthroid 88 mcg daily, Fosamax 70 once a week, Singulair 10 daily, Cardizem 240 mg p.o. b.i.d., Rythmol 150 3 times daily, Eliquis 5 mg p.o. b.i.d. Discontinue previous medicines Prinivil and metoprolol. Outpatient 30 day loop monitor, and follow up in my office in 10 days. cc: MD Isak Jean-Baptiste MD
== END 2016-12-06 10:08 | disposition home or self-care (01) ==
LOC: ED 09:12 → 3S 11:56
PROVIDERS: ADMIT Internal Medicine; ATTEND Internal Medicine